=== PATIENT | male | born 1940 | race Caucasian/White ===

== ENCOUNTER 2022-02-04 07:09 | Outpatient (CLI) | payer MEDICARE ==
--- NOTE | 2022-02-04 08:28 | Ultrasound Report ---
PROCEDURE: Head or Neck Soft Tissue INDICATIONS: LUMP AT BASE OF NECK TECHNIQUE: Real time scanning was performed of the neck region of interest, with image documentation . COMPARISON: None. FINDINGS: Focused ultrasound examination of left neck soft tissue at patient's reported palpable lump shows oval heterogeneously hypoechoic structure measures 1.8 x 1.5 x 1.7 cm in size with internal va scularity. No other soft tissue mass or enlarged lymph nodes are seen. IMPRESSION: Finding may represent enlarged lymph node in left neck soft tissues just posterior to mid common amado tid artery. Clinical correlation and follow-up is recommended. Reviewed by: Cezar Sinha MD on 02/04/2022 8:26 AM PDT Approved by: Cezar Sinha MD on 02/04/2022 8:26 AM PDT Station ID: [id number]
== END 2022-02-04 07:10 | disposition home or self-care (01) ==
LOC: DI 07:09
PROVIDERS: ATTEND Student in an Organized Health Care Education/Training Program
DX: R22.1 Localized swelling, mass and lump, neck (principal)

== ENCOUNTER 2022-09-17 10:37 | Outpatient (CLI) | payer MEDICARE ==
--- NOTE | 2022-09-17 13:22 | XRAY Report ---
PROCEDURE: Shoulder 3 View RT INDICATIONS: SHOULDER PAIN TECHNIQUE: 3 views of the shoulder were acquired. COMPARISON: None. FINDINGS: Bones: No fractures or dislocations. Moderate degenerative glenohumeral joint space loss and mild s clerosis of the acetabular rim. Mild space loss and spurring at the acromioclavicular joint. No suspi cious bony lesions. Visualized ribs appear intact. Soft tissues: No suspicious soft tissue calcifications. The visible right lung is normal. IMPRESSION: 1. Moderate degenerative glenohumeral joint changes. 2. Mild AC joint degenerative change. Reviewed by: Allegra Carney MD on 09/17/2022 12:20 PM [facility] Approved by: Allegra Carney MD on 09/17/2022 12:20 PM [facility] Station ID: [id number]
== END 2022-09-17 10:38 | disposition home or self-care (01) ==
LOC: DI 10:37
PROVIDERS: ATTEND Internal Medicine
DX: M19.011 Primary osteoarthritis, right shoulder (principal)

== ENCOUNTER 2022-10-16 06:20 | Outpatient (CLI) | payer MEDICARE ==
[2022-10-16 06:47] LABS: CREATININE 0.9 mg/dL (0.6-1.2)
[2022-10-16] MEDS ORDERED: iohexoL-300 100 ML VIAL ONE (06:56)
[2022-10-16] MEDS: iohexoL-300 100 ML VIAL IVP ONE (07:27)
--- NOTE | 2022-10-16 10:56 | CT Report ---
PROCEDURE: SOFT TISSUE NECK W INDICATIONS: NECK MASS CONTRAST: 100ml Omnipaque 300 TECHNIQUE: After the administration of intravenous contrast, 3.0 mm axial sections acquired from the sella to th e aortic arch. Additional oblique axial 3.0 mm sections acquired through the pharynx. 3 mm thick co layo reformats were generated. For radiation dose reduction, the following was used: automated exp osure control, adjustment of mA and/or kV according to patient size. COMPARISON: Correlation is made with prior ultrasound, 02/04/2022. FINDINGS: Image quality: There is artifact associated with the metallic hardware. Lymph nodes: No enlarged lymph nodes seen throughout the neck. Vessels: Visualized vasculature appears patent. Neck spaces: At the site of the previously seen ultrasound abnormality, there is a well-defined roun ded low-density lesion that measures 1.8 x 1.8 cm in greatest axial dimension, with an intraluminal d ensity of 30 Hounsfield units. No significant rim enhancement can be seen. The oropharynx, nasopharynx, and pharynx demonstrate no mucosal lesions. The vocal cords, false voca l cords, pyriform sinuses, epiglottis, vallecula, and tongue base all appear normal. Glands: The parotid and submandibular glands appear normal. The thyroid demonstrates a 2 cm low-den sity lesion on the right posteriorly. Miscellaneous: Visualized brain and orbits appear normal. Lung apices appear clear. Superficial so ft tissues appear normal. Bones: No suspicious bony lesions. Moderate mucosal thickening is seen involving the maxillary sinus es. The medial porras of the maxillary sinuses are demineralized. Mild to moderate mucosal thickening is seen involving the frontal sinuses, left worse than right. Milder mucosal thickening is seen elsew here within the paranasal sinuses. No significant abnormal fluid can be seen within the mastoid air c ells. Mild to moderate cervical spine degenerative changes are seen. IMPRESSION: There is an 18 mm rounded lesion seen within the left base of the neck, corresponding to the previous ly seen ultrasound abnormality. This is stable from the prior and is felt most likely to be related t o a benign complicated cyst. 2 cm right thyroid lesion noted. If clinically appropriate, please consider a follow-up dedicated thy roid ultrasound for further evaluation. Paranasal sinus disease is noted, which is most prominent within the maxillary sinuses. Reviewed by: Sheldon Rivera MD on 10/16/2022 9:54 AM [facility] Approved by: Sheldon Rivera MD on 10/16/2022 9:54 AM [facility] Station ID: [id number]
== END 2022-10-16 06:21 | disposition home or self-care (01) ==
LOC: LAB 06:20
PROVIDERS: ATTEND Otolaryngology
DX: J35.8 Other chronic diseases of tonsils and adenoids (principal); R22.1 Localized swelling, mass and lump, neck; E07.89 Other specified disorders of thyroid; J34.89 Other specified disorders of nose and nasal sinuses
CPT/HCPCS: 36415; 70491; 82565; Q9967

== ENCOUNTER 2022-11-01 08:48 | Outpatient (CLI) | payer MEDICARE ==
--- NOTE | 2022-11-01 14:03 | Ultrasound Report ---
PROCEDURE: Head or Neck Soft Tissue INDICATIONS: THYROID NODULE TECHNIQUE: Real time scanning was performed of the neck region of interest, with image documentation . COMPARISON: Neck CT 10/16/2022 FINDINGS: There are two thyroid nodules in the right thyroid lobe. One nodule in the superior and lateral right thyroid is solid and hypoechoic with smooth margins and increased vascularity but no suspicious internal echogenic foci to suggest microcalcification. This n odule measures 0.9 x 0.7 x 0.4 cm. Another nodule in the inferior right thyroid is decreased in size from comparison CT exam, currently measuring 1.8 x 1.7 x 1.6 cm (previously up to 2 cm). This is predominantly solid and hypoechoic with smooth margins and peripheral vascularity. IMPRESSION: Two thyroid lobe nodules which warrant follow-up in 12 months but do not meet recommendation criteria for fine needle aspiration. Reviewed by: Cedric Palacios MD on 11/01/2022 1:02 PM [place] Approved by: Cedric Palacios MD on 11/01/2022 1:02 PM [facility] Station ID: [id number]
== END 2022-11-01 08:49 | disposition home or self-care (01) ==
LOC: DI 08:48
PROVIDERS: ATTEND Otolaryngology
DX: E04.2 Nontoxic multinodular goiter (principal)

== ENCOUNTER 2023-07-07 11:31 | Observation (INO) | payer MEDICARE ==
[2023-07-07 12:24] LABS: BASOPHILS # (AUTO) 0.1 10^3/uL (0.0-0.1); EOSINOPHILS # (AUTO) 0.1 10^3/uL (0.0-0.7); HCT - HEMATOCRIT 31.5 % (42.0-52.0); HGB - HEMOGLOBIN 10.5 g/dL (14.0-18.0); LYMPHOCYTES # (AUTO) 2.2 10^3/uL (1.5-3.5); LYMPHOCYTES % (AUTO) 24.2 %; MEAN CORPUSCULAR HEMOGLOBIN 30.4 pg (27.0-31.0); MEAN CORPUSCULAR HGB CONC 33.3 g/dL (32.0-36.0); MEAN CORPUSCULAR VOLUME 91.3 fL (80.0-94.0); MEAN PLATELET VOLUME 9.1 fL (7.4-11.4); MONOCYTES # (AUTO) 0.7 10^3/uL (0.0-1.0); MONOCYTES % (AUTO) 7.1 %; NEUTROPHILS # (AUTO) 6.1 10^3/uL (1.5-6.6); NEUTROPHILS % (AUTO) 66.2 %; PLT - PLATELET COUNT 227 10^3/uL (130-450); RED BLOOD COUNT 3.45 10^6/uL (4.70-6.10); RED CELL DISTRIBUTION WIDTH 12.8 % (12.0-15.0); WHITE BLOOD COUNT 9.1 x10^3/uL (4.8-10.8)
[2023-07-07 12:31] LABS: ALBUMIN 3.7 g/dL (3.2-5.5); ALBUMIN/GLOBULIN RATIO 1.3 (1.0-2.2); BILIRUBIN,TOTAL 0.5 mg/dL (0.2-1.0); POTASSIUM 4.1 mmol/L (3.5-4.5); TOTAL PROTEIN 6.5 g/dL (6.4-8.9)
[2023-07-07] MEDS ORDERED: SODIUM CHLORIDE 0.9% 1,000 ML IV STA ×2 (13:45)
[2023-07-07] MEDS ORDERED: PANTOPRAZOLE 40 MG VIAL IVP STA (13:47)
--- NOTE | 2023-07-07 13:59 | ED Physician Documentation ---
History of Present Illness - Stated complaint Stated Complaint: VOMIT, DIZZINESS - Chief complaint Chief Complaint: Abd Pain - History obtained from History obtained from: Patient - History of Present Illness Timing: Today, How many days ago (3) Pain level max: 0 Pain level now: 0 - Additonal information Additional information: Patient is an 83-year-old male who presents to the emergency department with dark tarry stools for the past 2 to 3 days. He states today he had vomiting and the emesis appeared to be bloody. He is not on any blood thinners at home. Does not have any history of heavy alcohol use. No history of varices. Has never had GI bleeding before. He has had a colonoscopy in the past, states his last colonoscopy was about 4 to 5 years ago and states it was reportedly normal other than some polyps and diverticulosis. He states that he had a capsule endoscopy in the past to evaluate for possible Crohn's disease but it was "indeterminate". He does not use any NSAIDs. No fevers. No chills. Patient's states that he is pale appearing. Patient does not have any history of jyoti er disease. Review of Systems Constitutional: denies: Fever, Chills Nose: denies: Rhinorrhea / runny nose, Congestion Cardiac: denies: Chest pain / pressure, Palpitations Respiratory: denies: Cough, Wheezing GI: reports: Nausea, Vomiting, Hematemesis, Bloody / black stool. denies: Abdominal Pain : denies: Dysuria Skin: denies: Rash Musculoskeletal: denies: Neck pain, Back pain Neurologic: denies: Headache PD PAST MEDICAL HISTORY - Past Medical History Past Medical History: Yes Cardiovascular: Hypertension - Past Surgical History General: Colonoscopy - Present Medications Home Medications: Ambulatory Orders Medication Instructions Recorded Confirmed Aspirin EC [Ecotrin] 1 tab PO DAILY 07/07/23 07/07/23 Calcium Magnesium Zinc 1 tab PO Q48H 07/07/23 07/07/23 Cholecalciferol [Vitamin D3] 2 tab PO DAILY 07/07/23 07/07/23 Ibuprofen 1 tab PO DAILY PRN 07/07/23 07/07/23 Lactobacillus Combination No.4 1 cap PO DAILY 07/07/23 07/07/23 [Probiotic] Lisinopril [Zestril] 1 tab PO DAILY 07/07/23 07/07/23 Magnesium Oxide 1 cap PO DAILY 07/07/23 07/07/23 Red Yeast Rice 1 cap PO DAILY 07/07/23 07/07/23 Tocopheryl [Vitamin E] 1 cap PO DAILY 07/07/23 07/07/23 Turmeric/Turmeric Root Extract 1 cap PO Q48H 07/07/23 07/07/23 [Turmeric 500 mg Capsule] hydroCHLOROthiazide [Hydrodiuril] 1 cap PO DAILY 07/07/23 07/07/23 - Allergies Allergies/Adverse Reactions: Allergies Allergy/AdvReac Type Severity Reaction Status Date / Time Iodinated Contrast Media Allergy Rash Verified 07/07/23 16:17 Penicillins Allergy Rash Verified 07/07/23 12:04 - Living Situation Living Situation: reports: With family Living Arrangement: reports: At home - Social History Does the pt smoke?: No Does the pt drink ETOH?: Yes ETOH Use: Wine Does the pt have substance abuse?: No - Family History Family history: reports: Non contributory PD ED PE NORMAL - Vitals Vital signs reviewed: Yes - General General: Alert and oriented X 3, No acute distress - HEENT HEENT: PERRL, Moist mucous membranes - Neck Neck: Supple, no meningeal sign - Cardiac Cardiac: RRR, Strong equal pulses - Respiratory Respiratory: No respiratory distress, Clear bilaterally - Abdomen Abdomen: Soft, Non tender, Non distended - Rectal Rectal: Pt declined - Derm Derm: Warm and dry - Neuro Neuro: Alert and oriented X 3 - Psych Psych: Normal mood, Normal affect Results - Vitals Vitals: Vital Signs - 24 hr 07/07/23 07/07/23 07/07/23 12:04 14:03 15:03 Temperature 36.5 C Heart Rate 100 96 102 H Respiratory 16 12 14 Rate Blood Pressure 130/90 H 126/63 121/57 L O2 Saturation 97 96 93 Oxygen O2 Source Room air - Labs Labs: Microbiology 07/07/23 13:34 Occult Blood - Final Stool Laboratory Tests 07/07/23 07/07/23 07/07/23 12:14 12:14 13:50 WBC 9.1 RBC 3.45 L Hgb 10.5 L Hct 31.5 L MCV 91.3 MCH 30.4 MCHC 33.3 RDW 12.8 Plt Count 227 MPV 9.1 Neut # (Auto) 6.1 Lymph # (Auto) 2.2 [place] # (Auto) 0.7 Eos # (Auto) 0.1 Baso # (Auto) 0.1 Absolute Nucleated RBC 0.00 Nucleated RBC % 0.0 PT INR Sodium 138 Potassium 4.1 Chloride 102 Carbon Dioxide 27 Anion Gap 9.0 BUN 49 H Creatinine 1.0 Estimated GFR (MDRD) 72 L Glucose 255 H Calcium 9.0 Total Bilirubin 0.5 AST 24 ALT 30 Alkaline Phosphatase 28 L Total Protein 6.5 Albumin 3.7 Globulin 2.8 Albumin/Globulin Ratio 1.3 Lipase 20 Blood Type Blood Type Recheck A POSITIVE Antibody Screen 07/07/23 07/07/23 07/07/23 13:51 13:51 16:00 WBC 14.3 H RBC 3.24 L Hgb 9.9 L Hct 29.5 L MCV 91.0 MCH 30.6 MCHC 33.6 RDW 12.7 Plt Count 196 MPV 9.3 Neut # (Auto) 12.6 H Lymph # (Auto) 0.7 L [place] # (Auto) 0.8 Eos # (Auto) 0.0 Baso # (Auto) 0.0 Absolute Nucleated RBC 0.00 Nucleated RBC % 0.0 PT 12.6 INR 1.1 Sodium Potassium Chloride Carbon Dioxide Anion Gap BUN Creatinine Estimated GFR (MDRD) Glucose Calcium Total Bilirubin AST ALT Alkaline Phosphatase Total Protein Albumin Globulin Albumin/Globulin Ratio Lipase Blood Type A POSITIVE Blood Type Recheck Antibody Screen NEGATIVE PD Medical Decision Making - ED course Complexity details: reviewed results, re-evaluated patient, considered differential, d/w patient, d/w family, d/w nursing consultant ED course: Patient with obvious dark black tarry stool. Abdomen is soft, nontender nondistended. Appears to be consistent with an upper GI bleed. Given IV Protonix. Discussed the case with Dr. Fraga, general surgery on-call who will take the patient to the OR for endoscopy. Also discussed the case with Dr. Goetz, hospitalist who accepts the patient after endoscopy. Patient feels better after IV fluids. Will need continued monitoring. No history of esophageal varices. No history of heavy alcohol use. This document was made in part using voice recognition software. While efforts are made to proofread this document, sound alike and grammatical errors may occur. Departure - Departure Disposition: ED Place in Observation Clinical Impression: GI bleed Qualifiers: GI bleed type/associated pathology: melena Qualified Code(s): K92.1 - Melena Anemia Qualifiers: Anemia type: unspecified type Qualified Code(s): D64.9 - Anemia, unspecified Hematemesis/vomiting blood Qualifiers: Nausea presence: with nausea Qualified Code(s): K92.0 - Hematemesis Condition: Stable Discharge Date/Time: 07/07/23 16:25
[2023-07-07] MEDS ORDERED: METOCLOPRAMIDE 10 MG/2 ML VIAL IVP STA (14:01)
[2023-07-07 14:05] LABS: INR 1.1 (0.8-1.2); PT - PROTHROMBIN TIME 12.6 secs (9.9-12.6)
[2023-07-07 16:10] LABS: BASOPHILS % (AUTO) 0.3 %; EOSINOPHILS % (AUTO) 0.1 %; HCT - HEMATOCRIT 29.5 % (42.0-52.0); HGB - HEMOGLOBIN 9.9 g/dL (14.0-18.0); LYMPHOCYTES # (AUTO) 0.7 10^3/uL (1.5-3.5); LYMPHOCYTES % (AUTO) 4.9 %; MEAN CORPUSCULAR HEMOGLOBIN 30.6 pg (27.0-31.0); MEAN CORPUSCULAR HGB CONC 33.6 g/dL (32.0-36.0); MEAN PLATELET VOLUME 9.3 fL (7.4-11.4); MONOCYTES # (AUTO) 0.8 10^3/uL (0.0-1.0); MONOCYTES % (AUTO) 5.9 %; NEUTROPHILS # (AUTO) 12.6 10^3/uL (1.5-6.6); NEUTROPHILS % (AUTO) 88.1 %; PLT - PLATELET COUNT 196 10^3/uL (130-450); RED BLOOD COUNT 3.24 10^6/uL (4.70-6.10); RED CELL DISTRIBUTION WIDTH 12.7 % (12.0-15.0); WHITE BLOOD COUNT 14.3 x10^3/uL (4.8-10.8)
--- NOTE | 2023-07-07 16:15 | ANESTHESIA ---
Pre-Anesthesia VS, & Labs - Diagnosis Anemia, GI BLeed - Procedure EGD Vital Signs: Temp Pulse Resp BP Pulse Ox O2 Flow Rate 36.5 C 102 H 14 121/57 L 93 07/07/23 12:04 07/07/23 15:03 07/07/23 15:03 07/07/23 15:03 07/07/23 15:03 Height: 5 ft 7 in Weight (kg): 77.111 kg Body Mass Index: 26.6 BMI Classification: Overweight - NPO Last Food Intake: 0700 oatmeal - Lab Results Current Lab Results: Laboratory Tests 07/07/23 13:51: PT 12.6, INR 1.1 07/07/23 13:51: Blood Type A POSITIVE, Antibody Screen NEGATIVE 07/07/23 13:50: Blood Type Recheck A POSITIVE 07/07/23 12:14: Sodium 138, Potassium 4.1, Chloride 102, Carbon Dioxide 27, Anion Gap 9.0, BUN 49 H, Creatinine 1.0, Estimated GFR (MDRD) 72 L, Glucose 255 H, Calcium 9.0, Total Bilirubin 0.5, AST 24, ALT 30, Alkaline Phosphatase 28 L, Total Protein 6.5, Albumin 3.7, Globulin 2.8, Albumin/Globulin Ratio 1.3, Lipase 20 07/07/23 12:14: WBC 9.1, RBC 3.45 L, Hgb 10.5 L, Hct 31.5 L, MCV 91.3, MCH 30.4, MCHC 33.3, RDW 12.8, Plt Count 227, MPV 9.1, Neut # (Auto) 6.1, Lymph # (Auto) 2.2, [place] # (Auto) 0.7, Eos # (Auto) 0.1, Baso # (Auto) 0.1, Absolute Nucleated RBC 0.00, Nucleated RBC % 0.0 Lab results reviewed: Yes Fish Bones: 07/07/23 12:14 07/07/23 12:14 Home Medications and Allergies Active Medications Sodium Chloride (Normal Saline 0.9%) 1,000 mls @ 150 mls/hr IV .[id number] STA Stop: 07/07/23 20:24 Last Admin: 07/07/23 13:55 Dose: 150 mls/hr Lisinopril/HCTZ ASA Allergies/Adverse Reactions: Allergies Allergy/AdvReac Type Severity Reaction Status Date / Time Iodinated Contrast Media Allergy Rash Verified 07/07/23 16:17 Penicillins Allergy Rash Verified 07/07/23 12:04 Anes History & Medical History - Anesthetic History Family history of Anesthesia Complications: Denies Family history of Malignant Hyperthermia: Denies - Medical History Cardiovascular: reports: Hypertension Pulmonary: reports: Other (snores) Gastrointestinal: reports: GERD (occasional) Urinary: reports: None Neuro: reports: None Musculoskeletal: reports: None Endocrine/Autoimmune: reports: None Blood Disorders: reports: None Skin: reports: None Smoking Status: Never smoker Psychosocial: reports: Alcohol (daily glass of wine) History of Cancer?: No - Surgical History General: reports: Colonoscopy Exam General: Alert, Oriented x3, Cooperative, No acute distress Dental: WNL Mouth Openin Fingerbreadth Neck Mobility: Normal Mallampati classification: I Thyromental Distance: 4-6 cm Mental/Cognitive Status: Alert/Oriented X3, Normal for patient Plan Anesthesia Type: General Consent for Procedure(s) Verified and Reviewed: Yes Code Status: Attempt Resuscitation ASA classification: 2-Mild systemic disease Is this case an emergency?: Yes
[2023-07-07] MEDS ORDERED: PROPOFOL 500 MG/50 ML 500 MG/50 ML VIAL ONE (16:16)
--- NOTE | 2023-07-07 16:16 | CONSULTATION NOTE ---
Referring Provider Name of Referring Provider:: medicine Consult Date: 07/07/23 Chief Complaint - Chief Complaint Chief Complaint: I feel terrible History of Present Illness - Admitted From Admitted From:: ED - History Obtained From Records Reviewed: yes History obtained from: patient, ED provider, - History of Present Illness HPI Comment/Other: Please see paper H&P on chart. melena x1 day, emesis x6 today History - Past Medical History Cardiovascular: reports: Hypertension - Past Surgical History General: reports: Colonoscopy - Family & Social History Living arrangement: At home Living Situation: With family - POLST Patient has POLST: No Meds/Allgy - Allergies Allergies/Adverse Reactions: Allergies Allergy/AdvReac Type Severity Reaction Status Date / Time Penicillins Allergy Rash Verified 07/07/23 12:04 Exam - Vital Signs Vital Signs: Vital Signs x48h Temp Pulse Resp BP Pulse Ox 07/07/23 15:03 102 H 14 121/57 L 93 07/07/23 14:03 96 12 126/63 96 07/07/23 12:04 36.5 C 100 16 130/90 H 97 Conclusion and Plan - Lab Results Microbiology Results 07/07/23 13:34 Stool Occult Blood - Final Laboratory Results 07/07/23 13:51: PT 12.6, INR 1.1 07/07/23 13:51: Blood Type A POSITIVE, Antibody Screen NEGATIVE 07/07/23 13:50: Blood Type Recheck A POSITIVE 07/07/23 12:14: Sodium 138, Potassium 4.1, Chloride 102, Carbon Dioxide 27, Anion Gap 9.0, BUN 49 H, Creatinine 1.0, Estimated GFR (MDRD) 72 L, Glucose 255 H, Calcium 9.0, Total Bilirubin 0.5, AST 24, ALT 30, Alkaline Phosphatase 28 L, Total Protein 6.5, Albumin 3.7, Globulin 2.8, Albumin/Globulin Ratio 1.3, Lipase 20 07/07/23 12:14: WBC 9.1, RBC 3.45 L, Hgb 10.5 L, Hct 31.5 L, MCV 91.3, MCH 30.4, MCHC 33.3, RDW 12.8, Plt Count 227, MPV 9.1, Neut # (Auto) 6.1, Lymph # (Auto) 2.2, [place] # (Auto) 0.7, Eos # (Auto) 0.1, Baso # (Auto) 0.1, Absolute Nucleated RBC 0.00, Nucleated RBC % 0.0 - Consultation Note Consultation Note: 83 y/o M with: 1. Acute gi bleed - Hgb 10, HD stable - suspect upper source given elevated BUN, hematemesis - plan for emergent EGD today. I discussed r/b/a of procedure with the patient including bleeding and perforation. Consent signed by patient in ED. - PPI BID IV until bleeding stops, then transition to PO - q6h hgb until stable - NPO until bleeding stops 2. HTN - recommend holding home meds while actively bleeding Recommend inpatient admission to medicine. Thank you for consulting me in the care of this patient! I will continue to follow closely.
[2023-07-07] MEDS ORDERED: SODIUM CHLORIDE FLUSH 0.9% 10 ML SYRINGE IVP PRN (16:39)
[2023-07-07] MEDS ORDERED: ACETAMINOPHEN 325 MG TABLET PO PRN (16:39)
--- NOTE | 2023-07-07 16:46 | HISTORY & PHYSICAL EXAMINATION ---
Chief Complaint - Chief Complaint Chief Complaint: Hematemasis History of Present Illness - Admitted From Admitted From:: OR after EGD - History Obtained From History obtained from: ED provider and surgeon - History of Present Illness HPI Comment/Other: This is an 83-year-old male with a history of HTN on Lisinopril/HCTZ and he takes daily ASA. Today he presented to the ER with complaints of dark tarry stools for the past 2 to 3 days, and today had vomiting bright red blood and coffee-grounds. While in the ER he also had a current-jelly black stool. He was worked up for an GI bleed and hemoglobin came back at 10.5. His HR is 102, but BP stable. General surgery was called for consultation and will be taking him directly from the ED to OR for an EGD. I spoke to the general surgeon Dr. Gerber regarding the plan. Dr. Gerber first said that if the EGD is negative that he will need a CTA abdomen/pelvis, however Dr Gerber later told me that the CTA would only need to be done emergently if there is no source of bleeding found by EGD, or if he rebleeds. History - Past Medical History Cardiovascular: reports: Hypertension Respiratory: reports: Other (snores) Neuro: reports: None Endocrine/Autoimmune: reports: None GI: reports: GERD (occasional) : reports: None Musculoskeletal: reports: None Derm: reports: None - Past Surgical History General: reports: Colonoscopy - Family & Social History Living arrangement: At home Living Situation: With spouse/s.o. Social History Notes: He does not smoke. He drinks 1 glass of alcohol every day. - POLST Patient has POLST: No Meds/Allgy - Home Medications Home Medications: Ambulatory Orders Medication Instructions Recorded Confirmed Aspirin EC [Ecotrin] 1 tab PO DAILY 07/07/23 07/07/23 Calcium Magnesium Zinc 1 tab PO Q48H 07/07/23 07/07/23 Cholecalciferol [Vitamin D3] 2 tab PO DAILY 07/07/23 07/07/23 Ibuprofen 1 tab PO DAILY PRN 07/07/23 07/07/23 Lactobacillus Combination No.4 1 cap PO DAILY 07/07/23 07/07/23 [Probiotic] Lisinopril [Zestril] 1 tab PO DAILY 07/07/23 07/07/23 Magnesium Oxide 1 cap PO DAILY 07/07/23 07/07/23 Red Yeast Rice 1 cap PO DAILY 07/07/23 07/07/23 Tocopheryl [Vitamin E] 1 cap PO DAILY 07/07/23 07/07/23 Turmeric/Turmeric Root Extract 1 cap PO Q48H 07/07/23 07/07/23 [Turmeric 500 mg Capsule] hydroCHLOROthiazide [Hydrodiuril] 1 cap PO DAILY 07/07/23 07/07/23 - Allergies Allergies/Adverse Reactions: Allergies Allergy/AdvReac Type Severity Reaction Status Date / Time Iodinated Contrast Media Allergy Rash Verified 07/07/23 16:17 Penicillins Allergy Rash Verified 07/07/23 12:04 Review of Systems - Gastrointestinal Gastrointestinal: reports: Black stools, Bloody stools, Nausea, Vomiting, Coffee grounds emesis - All Other Systems All Other Systems: reports: Reviewed and negative Exam - Vital Signs Vital Signs: Vital Signs x48h Temp Pulse Resp BP Pulse Ox 07/07/23 15:03 102 H 14 121/57 L 93 07/07/23 14:03 96 12 126/63 96 07/07/23 12:04 36.5 C 100 16 130/90 H 97 - Physical Exam General Appearance: positive: No acute distress, Alert Eyes Bilateral: positive: No lid inflammation ENT: positive: ENT inspection nml Neck: positive: Nml inspection Respiratory: positive: No respiratory distress, Breath sounds nml Cardiovascular: positive: Regular rate & rhythm, No murmur Abdomen: positive: Non-tender, No distention Skin: positive: Warm, Dry Extremities: positive: Non-tender, No pedal edema Neurologic/Psychiatric: positive: Oriented x3 Conclusion/Plan - Problem List (1) Hematemesis/vomiting blood Conclusion/Plan: Patient had witnessed coffee-ground emesis as well as current-jelly bowel movement in the ER. He has an elevated BUN. These findings are consistent with upper GI bleed. Patient was started on IV Protonix empirically Patient will be taken to the OR for an EGD emergently. Plan: Place in observation for close monitoring of recurrence of bleeding, watching vital signs Continue with IV twice daily Protonix Avoid any NSAIDs or aspirin Diet to be advanced as recommended by general surgeon EGD to be done emergently today>> Dr Gerber spoke to me about his EGD results. He has a small superficial healed ulcer in the duodenal bulb. He also has a Patsy-Whelan tear at the GE junction with evidence of recent bleeding. There is no blood in the stomach. She recommended the PPI twice daily and following Hgb. She will also talk to him about stopping daily alcohol intake. Will order Sucralfate liquid as well. Qualifiers: Nausea presence: with nausea Qualified Code(s): K92.0 - Hematemesis (2) Anemia Conclusion/Plan: The patient has a hemoglobin of 9.9. Because is an upper GI bleed, most likely Plan: Follow hemoglobin every 6 and would plan to transfuse if Hgb <7 Qualifiers: Anemia type: unspecified type Qualified Code(s): D64.9 - Anemia, unspecified (3) Hx of essential hypertension Conclusion/Plan: The patient is on BP meds. Currently his blood pressure is stable however in the face of an active upper GI bleed, blood pressure could drop rapidly due to blood loss Plan: Hold BP meds for now - Lab Results Lab results reviewed: Yes Fish Bones: 07/08/23 07:59 07/07/23 12:14 - Diagnostic Imaging Results Diagnostic Imaging Results: positive: Final report reviewed
--- NOTE | 2023-07-07 17:51 | ANESTHESIA POST OP EVALUATION ---
Anesthesia Post Eval - Post Anesthesia Eval Vitals: Last Vital Signs Temp 36.8 C 07/07/23 17:48 Pulse 92 07/07/23 17:48 Resp 19 07/07/23 17:48 BP 112/54 L 07/07/23 17:48 Pulse Ox 93 07/07/23 17:48 O2 Flow Rate CV Function Including HR & BP: Stable Pain Control: Satisfactory Nausea & Vomiting: Negative Mental Status: Baseline Respiratory Status: Airway Patent Hydration Status: Satisfactory Anesthesia Complications: None
--- NOTE | 2023-07-07 18:10 | PHARMACY PROGRESS NOTE ---
- Best Possible Medication History Admit Date and Time: 07/07/23 3199 Processed by: Pharmacy Medication History completed: Yes Patient Interview: Completed Secondary Source(s): Spouse/Significant other, Pharmacy records As the person ultimately responsible for medication therapy, providers are able to order a medication from an existing home medication list in [facility] via the "Reconcile Routine" prior to Confirmation of that medication by patient support associate. Such practice is discouraged except when the physician, in their clinical judgment, deems that a medical need exists for a medication without regard to previous use.
[2023-07-07] MEDS ORDERED: SUCRALFATE 1 GM/10 ML UDC PO SCH ×3 (18:32→22:00)
[2023-07-07] MEDS ORDERED: PANTOPRAZOLE 40 MG VIAL IVP ONE (21:00)
[2023-07-07] MEDS ORDERED: PANTOPRAZOLE 40 MG TABLET PO SCH (21:00)
[2023-07-07] MEDS: SODIUM CHLORIDE FLUSH 0.9% 10 ML SYRINGE IVP SCH ×2 (21:25→23:47)
[2023-07-07] MEDS: SODIUM CHLORIDE 0.9% 1,000 ML IV SCH (21:25)
[2023-07-07] MEDS ORDERED: SUCRALFATE 1 GM/10 ML UDC PO ONE (23:59)
[2023-07-08] MEDS: SUCRALFATE 1 GM/10 ML UDC PO SCH ×2 (06:31→11:32)
--- NOTE | 2023-07-08 07:29 | PROVIDER PROGRESS NOTE ---
Subjective - General Admit Date: 07/07/23 Procedure Date: 07/07/23 Post Op Days: 1 Procedure Performed: EGD - Other Other Information/Narrative: Patient denies pain, tolerating liquids. No acute events overnight. Patient would like to go home. States understanding regarding plan for diet, lifestyle after discharge. Objective - Patient Data Reviewed Vital Signs: Yes Vital Signs: Vital Signs x48h Temp Pulse Resp BP Pulse Ox 07/08/23 04:30 36.9 C 102 H 20 130/60 95 07/07/23 23:59 37.1 C 98 18 132/59 H 93 Weight: Weight 07/06/23 07/07/23 07/08/23 23:59 23:59 23:59 Weight (kg) 80 kg Intake & Output: Intake and Output Totals x24h 07/06/23 07/07/23 07/08/23 23:59 23:59 23:59 Intake Total 959.988 Output Total 825 700 Balance 134.988 -700 - Lab Results Lab Results: 07/08/23 02:09 07/07/23 12:14 Other Lab Results: Lab Results x24hrs 07/08/23 07/07/23 07/07/23 Range/Units 02:09 19:55 16:00 WBC 14.3 H (4.8-10.8) x10^3/uL RBC 3.24 L (4.70-6.10) 10^6/uL Hgb 8.1 L 9.5 L 9.9 L (14.0-18.0) g/dL Hct 29.5 L (42.0-52.0) % MCV 91.0 (80.0-94.0) fL MCH 30.6 (27.0-31.0) pg MCHC 33.6 (32.0-36.0) g/dL RDW 12.7 (12.0-15.0) % Plt Count 196 (130-450) 10^3/uL MPV 9.3 (7.4-11.4) fL Neut # (Auto) 12.6 H (1.5-6.6) 10^3/uL Lymph # (Auto) 0.7 L (1.5-3.5) 10^3/uL [place] # (Auto) 0.8 (0.0-1.0) 10^3/uL Eos # (Auto) 0.0 (0.0-0.7) 10^3/uL Baso # (Auto) 0.0 (0.0-0.1) 10^3/uL Absolute Nucleated RBC 0.00 x10^3/uL Nucleated RBC % 0.0 /100WBC PT (9.9-12.6) secs INR (0.8-1.2) Sodium (135-145) mmol/L Potassium (3.5-4.5) mmol/L Chloride (101-111) mmol/L Carbon Dioxide (21-32) mmol/L Anion Gap (6-13) BUN (6-20) mg/dL Creatinine (0.6-1.3) mg/dL Estimated GFR (MDRD) (>89) Glucose (74-104) mg/dL Calcium (8.5-10.3) mg/dL Total Bilirubin (0.2-1.0) mg/dL AST (10-42) IU/L ALT (10-60) IU/L Alkaline Phosphatase (42-121) IU/L Total Protein (6.4-8.9) g/dL Albumin (3.2-5.5) g/dL Globulin (2.1-4.2) g/dL Albumin/Globulin Ratio (1.0-2.2) Lipase (11-82) U/L Blood Type Blood Type Recheck Antibody Screen 07/07/23 07/07/23 07/07/23 Range/Units 13:51 13:51 13:50 WBC (4.8-10.8) x10^3/uL RBC (4.70-6.10) 10^6/uL Hgb (14.0-18.0) g/dL Hct (42.0-52.0) % MCV (80.0-94.0) fL MCH (27.0-31.0) pg MCHC (32.0-36.0) g/dL RDW (12.0-15.0) % Plt Count (130-450) 10^3/uL MPV (7.4-11.4) fL Neut # (Auto) (1.5-6.6) 10^3/uL Lymph # (Auto) (1.5-3.5) 10^3/uL [place] # (Auto) (0.0-1.0) 10^3/uL Eos # (Auto) (0.0-0.7) 10^3/uL Baso # (Auto) (0.0-0.1) 10^3/uL Absolute Nucleated RBC x10^3/uL Nucleated RBC % /100WBC PT 12.6 (9.9-12.6) secs INR 1.1 (0.8-1.2) Sodium (135-145) mmol/L Potassium (3.5-4.5) mmol/L Chloride (101-111) mmol/L Carbon Dioxide (21-32) mmol/L Anion Gap (6-13) BUN (6-20) mg/dL Creatinine (0.6-1.3) mg/dL Estimated GFR (MDRD) (>89) Glucose (74-104) mg/dL Calcium (8.5-10.3) mg/dL Total Bilirubin (0.2-1.0) mg/dL AST (10-42) IU/L ALT (10-60) IU/L Alkaline Phosphatase (42-121) IU/L Total Protein (6.4-8.9) g/dL Albumin (3.2-5.5) g/dL Globulin (2.1-4.2) g/dL Albumin/Globulin Ratio (1.0-2.2) Lipase (11-82) U/L Blood Type A POSITIVE Blood Type Recheck A POSITIVE Antibody Screen NEGATIVE 07/07/23 07/07/23 Range/Units 12:14 12:14 WBC 9.1 (4.8-10.8) x10^3/uL RBC 3.45 L (4.70-6.10) 10^6/uL Hgb 10.5 L (14.0-18.0) g/dL Hct 31.5 L (42.0-52.0) % MCV 91.3 (80.0-94.0) fL MCH 30.4 (27.0-31.0) pg MCHC 33.3 (32.0-36.0) g/dL RDW 12.8 (12.0-15.0) % Plt Count 227 (130-450) 10^3/uL MPV 9.1 (7.4-11.4) fL Neut # (Auto) 6.1 (1.5-6.6) 10^3/uL Lymph # (Auto) 2.2 (1.5-3.5) 10^3/uL [place] # (Auto) 0.7 (0.0-1.0) 10^3/uL Eos # (Auto) 0.1 (0.0-0.7) 10^3/uL Baso # (Auto) 0.1 (0.0-0.1) 10^3/uL Absolute Nucleated RBC 0.00 x10^3/uL Nucleated RBC % 0.0 /100WBC PT (9.9-12.6) secs INR (0.8-1.2) Sodium 138 (135-145) mmol/L Potassium 4.1 (3.5-4.5) mmol/L Chloride 102 (101-111) mmol/L Carbon Dioxide 27 (21-32) mmol/L Anion Gap 9.0 (6-13) BUN 49 H (6-20) mg/dL Creatinine 1.0 (0.6-1.3) mg/dL Estimated GFR (MDRD) 72 L (>89) Glucose 255 H (74-104) mg/dL Calcium 9.0 (8.5-10.3) mg/dL Total Bilirubin 0.5 (0.2-1.0) mg/dL AST 24 (10-42) IU/L ALT 30 (10-60) IU/L Alkaline Phosphatase 28 L (42-121) IU/L Total Protein 6.5 (6.4-8.9) g/dL Albumin 3.7 (3.2-5.5) g/dL Globulin 2.8 (2.1-4.2) g/dL Albumin/Globulin Ratio 1.3 (1.0-2.2) Lipase 20 (11-82) U/L Blood Type Blood Type Recheck Antibody Screen - Current Medications Current Medications: Current Medications Generic Name Dose Route Start Last Admin Trade Name Freq PRN Reason Stop Dose Admin Sodium Chloride 1,000 mls @ 83.333 mls/hr 07/07/23 18:00 07/07/23 22:47 Normal Saline 0.9% IV 83.333 mls/hr .Q12H DYAN Infusion Sodium Chloride 10 ml 07/07/23 17:00 07/07/23 23:47 Sodium Chloride Flush 0.9% 10 Ml Syringe IVP 10 ml 0100,0900,1700 DYAN Administration Sucralfate 1 gm 07/08/23 07:00 07/08/23 06:31 Sucralfate 1 Gm/10 Ml Udc PO 1 gm 0700,1100,1600,2200 DYAN Administration - Physical Exam General Appearance: positive: No acute distress, Alert Eyes Bilateral: positive: Normal inspection, PERRL ENT: positive: No signs of dehydration Neck: positive: Trachea midline Respiratory: positive: No respiratory distress Cardiovascular: positive: Regular rate & rhythm Abdomen: positive: Non-tender Extremities: positive: Non-tender Neurologic/Psychiatric: positive: Oriented x3 Impression/Plan - Problem List Problem List: 83 y/o M with: 1. Acute gi bleed 2/2 Patsy-Whelan tear - Hgb 8.1 this AM, will f/u 1200 lab. - HD stable - no further bleeding noted by patient, no hematemesis since presentation - EGD on 07/07 demonstrated tear without stigmata of bleeding no intervention done. Plan to rescope if rebleeding occurs. - recommend BID PO PPI, gerd diet and lifestyle on discharge - ok to adat this AM to regular - if hgb stable at noon, ok to discharge 2. HTN - recommend holding home meds while actively bleeding Patient admitted to medicine. Thank you for consulting me in the care of this patient! I will continue to follow closely.
[2023-07-08 08:22] VITALS: O2SAT 96
[2023-07-08] MEDS ORDERED: PANTOPRAZOLE 40 MG TABLET PO SCH (09:00)
[2023-07-08] MEDS: SODIUM CHLORIDE 0.9% 1,000 ML IV SCH (09:24)
--- NOTE | 2023-07-08 10:26 | Discharge Plan ---
Discharge Plan Problem Reviewed?: Yes Disposition: Home, Self Care Condition: Fair Prescriptions: Ferrous Gluconate [Fergon] 324 mg PO 0800,1800 #60 tablet Pantoprazole [Protonix] 40 mg PO BID #60 tab Diet: Soft (Low acid diet: no citrus fruits, no spicy foods, no Turmeric supplement, no acidy foods) Activity Restrictions: Activity as Tolerated Shower Restrictions: No Driving Restrictions: No Instruction Topics: GERD Dc Health Concerns: You were hospitalized because you had bloody vomiting caused by bleeding in your stomach. You underwent a scope that showed you have an ulcer and also a tear. The tear was caused by the retching and vomiting. You are being discharged home today with a new prescriptions to take: Protonix to heal the ulcer, and Iron to build your anemia back up to a normal hemoglobin. All new prescriptions were electronically sent to your pharmacy. You must stop taking the daily aspirin and the ibuprofen for the next 1 months minimum. You also need to now be on a low acid (GERD) diet for the next 1 month at least. You are also advised to not be drinking alcohol daily. Plan of Treatment: As above. You should see your Primary Care Provider in the next 1 to 2 weeks for hospital follow-up visit, and blood test to see if you are anemic. Care Goals: Improvement in symptoms and stabilization are the goals. Assessment: The patient understands and is agreeable with the plan. Additional Instructions or Follow Up instructions: If you have new or worsening symptoms, call your primary care provider for advice, or come to the ER. No Smoking: If you smoke, Please STOP! Call for help. Follow-up with: Gomez Mart MD [Provider Admit Priv/Credential] -
[2023-07-08] MEDS: SODIUM CHLORIDE FLUSH 0.9% 10 ML SYRINGE IVP SCH (11:29)
[2023-07-08 13:59] LABS: BILIRUBIN,URINE NEGATIVE (NEGATIVE); GLUCOSE, URINE (UA) 250 mg/dL (NEGATIVE); KETONES,URINE (UA) NEGATIVE (NEGATIVE); LEUKOCYTE ESTERASE, URINE NEGATIVE (NEGATIVE); NITRITE,URINE NEGATIVE (NEGATIVE); OCCULT BLOOD,URINE NEGATIVE (NEGATIVE); PROTEIN,URINE NEGATIVE (NEGATIVE); UROBILINOGEN,URINE 0.2 (NORMAL) E.U./dL (NORMAL)
[2023-07-08 14:09] LABS: CLARITY,URINE CLEAR (CLEAR)
--- NOTE | 2023-07-08 14:54 | DISCHARGE SUMMARY ---
Discharge Summary Admit Date: 07/07/23 Discharge Date: 07/08/23 Discharging Provider: Dr Esther Goetz Primary Care Provider: Dr Gomez Mart Condition at Discharge: Fair Discharge Disposition: 01 Home, Self Care - HPI History of Present Illness: This is an 83-year-old male with a history of HTN on Lisinopril/HCTZ and he takes daily ASA. Today he presented to the ER with complaints of dark tarry stools for the past 2 to 3 days, and today had vomiting bright red blood and coffee-grounds. While in the ER he also had a current-jelly black stool. He was worked up for an GI bleed and hemoglobin came back at 10.5. His HR is 102, but BP stable. General surgery was called for consultation and will be taking him directly from the ED to OR for an EGD. I spoke to the general surgeon Dr. Gerber regarding the plan. Dr. Gerber first said that if the EGD is negative that he will need a CTA abdomen/pelvis, however Dr Gerber later told me that the CTA would only need to be done emergently if there is no source of bleeding found by EGD, or if he rebleeds. The patient drinks 1 glass of wine daily for years. His INR, MCV and LFTs are normal. His CODE status is Full Code. - HOSPITAL COURSE Hospital Course: (1) Hematemesis/vomiting blood Patient had witnessed coffee-ground emesis as well as current-jelly bowel move ment in the ER. He had an elevated BUN, consistent with upper GI bleed. Patient was started on IV Protonix BID empirically. He was taken to the OR for an EGD emergently. The findings were a small superficial healed ulcer in the duodenal bulb. He also had a Patsy-Whelan tear at the GE junction with evidence of recent bleeding. There was no blood in the stomach. He was treated with PPI twice daily and Sucralfate liquid. He was discharged on Protonix 40 BID, new Iron replacement, and was told to entirely stop his daily aspirin and Motrin for a month, to eat a low acid (GERD) diet and to decrease his alcohol use. His Hgb was followed closely. (2) Anemia The patient had a hemoglobin of 10.5 at presentation. It dropped to 9.9 later that day, then was 9.5>> 8.1>> 8.2 at time of discharge. He did not receive any blood transfusions. He was started on oral Iron suppl. (3) Hx of essential hypertension The patient was on BP meds. They were on hold while here, given normal VS on no meds. (4) Alcohol use As per the Gen Surgeon's recommendations, the patient was advised to decrease his alcohol intake from a glass of wine daily to less often. - ALLERGIES Allergies/Adverse Reactions: Allergies Allergy/AdvReac Type Severity Reaction Status Date / Time Iodinated Contrast Media Allergy Rash Verified 07/07/23 16:17 Penicillins Allergy Rash Verified 07/07/23 12:04 - MEDICATIONS Home Medications: Ambulatory Orders Medication Instructions Recorded Confirmed Calcium Magnesium Zinc 1 tab PO Q48H 07/07/23 07/07/23 Cholecalciferol [Vitamin D3] 2 tab PO DAILY 07/07/23 07/07/23 Magnesium Oxide 1 cap PO DAILY 07/07/23 07/07/23 Red Yeast Rice 1 cap PO DAILY 07/07/23 07/07/23 Tocopheryl [Vitamin E] 1 cap PO DAILY 07/07/23 07/07/23 Ferrous Gluconate [Fergon] 324 mg PO 0800,1800 #60 tablet 07/08/23 Pantoprazole [Protonix] 40 mg PO BID #60 tab 07/08/23 - PHYSICAL EXAM AT DISCHARGE General Appearance: positive: No acute distress, Alert Eyes Bilateral: positive: Normal inspection, EOMI ENT: positive: ENT inspection nml, No signs of dehydration Neck: positive: Nml inspection, No JVD Respiratory: positive: No respiratory distress, Breath sounds nml Cardiovascular: positive: Regular rate & rhythm, No murmur Abdomen: positive: Non-tender, Nml bowel sounds, No distention Skin: positive: Warm, Dry, Pallor Extremities: positive: Non-tender, No pedal edema Neurologic/Psychiatric: positive: Oriented x3, Motor nml - LABS Result Diagrams: 07/08/23 07:59 07/07/23 12:14 - FOLLOW UP Follow Up: See PCP in 1-2 weeks for a hospital F/U visit. - TIME SPENT Time Spent in Discharge (Minutes): 25
[2023-07-08 15:37] VITALS: BP 122/63
== END 2023-07-08 16:05 | disposition home or self-care (01) ==
LOC: ED 11:31 → OBSVTOIN 16:39 → INTOOBSV 16:39 → MS2 16:39
PROVIDERS: ADMIT Internal Medicine; ATTEND Internal Medicine
PROC: 0DB68ZX Excision of Stomach, Via Natural or Artificial Opening Endoscopic, Diagnostic (ICD-10-PCS; principal; 2023-07-07 17:00)
DX: K22.6 Gastro-esophageal laceration-hemorrhage syndrome (principal); K26.9 Duodenal ulcer, unspecified as acute or chronic, without hemorrhage or perforation; K29.70 Gastritis, unspecified, without bleeding; B96.81 Helicobacter pylori [H. pylori] as the cause of diseases classified elsewhere; D64.9 Anemia, unspecified; K21.9 Gastro-esophageal reflux disease without esophagitis; I10 Essential (primary) hypertension; Z79.82 Long term (current) use of aspirin; Z79.899 Other long term (current) drug therapy; Z88.0 Allergy status to penicillin; Z91.041 Radiographic dye allergy status
CPT/HCPCS: 36415; 43239; 80053; 81003; 82272; 83690; 85018; 85025; 85610; 86850; 86900; 86901; 96374; 96375; 99284; 99285; A9270; J2765; 81001; 87086

== ENCOUNTER 2023-12-01 10:08 | Outpatient (CLI) | payer MEDICARE ==
--- NOTE | 2023-12-01 15:33 | Ultrasound Report ---
PROCEDURE: Soft Tissue Head or Neck INDICATIONS: THYROID NODULE TECHNIQUE: Real-time scanning was performed of the thyroid gland, with image documentation. COMPARISON: Thyroid ultrasound 11/01/2022. CTA neck 10/16/2022 FINDINGS: Right: Thyroid lobe measures 4.4 x 1.9 x 1.8 cm, and is homogeneous in echotexture. Left: Thyroid lobe measures 4.2 x 2.0 x 1.6 cm, and is homogenous in echotexture. Isthmus: 0.4 cm thick. Nodule number: One Location: Right superior lateral Size: 0.9 x 0.7 x 0.4 cm, unchanged. Composition: Solid (2 points). Echogenicity: Isoechoic (1 point). Shape: wider than tall (0 points). Margins: Smooth (0 points). Echogenic foci: None (0 points). Total points: 3 ACR TI-RADS category: TI-RADS 3: Mildly suspicious. Nodule number: Two Location: Right inferior Size: 1.6 x 1.5 x 1.3 cm, significantly changed. Composition: Solid (2 points). Echogenicity: Isoechoic (1 point). Shape: wider than tall (0 points). Margins: Smooth (0 points). Echogenic foci: None (0 points). Total points: 3 ACR TI-RADS category: TI-RADS 3: Mildly suspicious. Circumscribed hypoechoic lesion is seen in the left posterior neck measuring 2.0 x 1.8 x 1.6 cm with posterior acoustic enhancement, which does not appear significantly changed when compared to the prio r ultrasound from 11/01/2022. The CT from 10/16/2022. IMPRESSION: 1.Stable right-sided thyroid nodules. Recommend continued sonographic follow-up. 2.Stable complicated cyst in the left posterior neck. ACR TI-RADS definitions and recommendations: TI-RADS 1 (benign): 0 points. FNA not needed. TI-RADS 2 (not suspicious): 2 points. FNA not needed. TI-RADS 3 (mildly suspicious): 3 points. "FNA if 2.5 cm or larger, follow up if 1.5 cm or larger (at 1, 3, and 5 years). TI-RADS 4 (moderately suspicious): 4-6 points. "FNA if 1.5 cm or larger, follow up if 1 cm or larger (at 1, 2, 3, and 5 years). TI-RADS 5 (highly suspicious): 7 points or more. "FNA if 1 cm or larger, follow up if 0.5 cm or larger (every year for 5 years). Reviewed by: Jeff Power MD on 12/01/2023 3:32 PM PST Approved by: Jeff Power MD on 12/01/2023 3:32 PM PST Station ID: [id number]
== END 2023-12-01 10:09 | disposition home or self-care (01) ==
LOC: DI 10:08
PROVIDERS: ATTEND Otolaryngology
DX: E04.2 Nontoxic multinodular goiter (principal)

== ENCOUNTER 2025-02-21 09:49 | Observation (INO) ==
[2025-02-21] MEDS ORDERED: ceFAZolin 2 GM VIAL ONE (10:13)
--- NOTE | 2025-02-21 10:47 | Preop H&P Attestation ---
Preop H&P Attestation Preop History & Physical Preop H&P Date: 02/08/25 History & Physical Reviewed and patient examined today.: No change -: RRR CTA b/l hess in place
[2025-02-21] MEDS ORDERED: NALOXONE 0.4 MG/ML VIAL IVP PRN (10:49)
[2025-02-21] MEDS ORDERED: ONDANSETRON 4 MG/2 ML VIAL IVP PRN ×2 (10:49→12:34)
[2025-02-21] MEDS ORDERED: fentaNYL 100 MCG/2 ML VIAL IVP PRN (10:49)
[2025-02-21] MEDS ORDERED: HYDROmorphone 0.5 MG/0.5 ML SYRINGE IVP PRN (10:49)
[2025-02-21] MEDS ORDERED: METOCLOPRAMIDE 10 MG/2 ML VIAL IVP PRN (10:49)
[2025-02-21] MEDS ORDERED: ePHEDrine 50 MG/ML VIAL IVP PRN (10:49)
[2025-02-21] MEDS ORDERED: ATROPINE ABBOJECT 1 MG/10 ML SYRINGE IVP PRN (10:49)
[2025-02-21] MEDS ORDERED: MORPHINE 2 MG/ML CARPUJECT IVP PRN ×2 (10:49→14:14)
--- NOTE | 2025-02-21 10:49 | ANESTHESIA PROCEDURE NOTE ---
Pre-Anesthesia VS, & Labs Diagnosis Surgical Diagnosis:: enlarged prostate Procedure Procedure: TURP Vitals Vital Signs: Temp Pulse Resp BP Pulse Ox 36.5 C 75 14 178/91 H 96 02/21/25 10:15 02/21/25 10:15 02/21/25 10:15 02/21/25 10:15 02/21/25 10:15 NPO NPO: >8 hours Meds/Allgy Home Medications Ambulatory Orders Medication Instructions Recorded Confirmed Calcium Magnesium Zinc 1 tab PO Q48H 07/07/23 02/21/25 Red Yeast Rice 1 cap PO DAILY 07/07/23 02/21/25 cholecalciferol (vitamin D3) 25 2 tab PO DAILY 07/07/23 02/21/25 mcg (1,000 unit) tablet magnesium oxide 500 mg capsule 1 cap PO DAILY 07/07/23 02/21/25 vitamin E (dl, acetate) 180 mg 1 cap PO DAILY 07/07/23 02/21/25 (400 unit) capsule hydrochlorothiazide 12.5 mg tablet 12.5 mg PO QDAY 12/03/24 02/21/25 lisinopril 20 mg tablet 20 mg PO QDAY 12/03/24 02/21/25 coenzyme Q10 100 mg capsule (Co 100 mg PO DAILY 02/15/25 02/21/25 Q-10) tamsulosin 0.4 mg capsule (Flomax) 0.4 mg PO DAILY #30 caps 02/15/25 02/21/25 Allergies Allergies Allergy/AdvReac Type Severity Reaction Status Date / Time Iodinated Contrast Media Allergy Rash Verified 02/21/25 10:14 Penicillins Allergy Rash Verified 02/21/25 10:14 PFSH Active Problems All Active Problems (Updated 02/08/25 @ 15:26 by Que Collier MD) Bladder mass (Acute) BPH with obstruction/lower urinary tract symptoms (Acute) Acute urinary retention (Acute) Acute urinary retention (Acute) Bowel habit changes (Acute) BRBPR (bright red blood per rectum) (Acute) Other fecal abnormalities (Acute) Fatty liver (Acute) Elevated prostate specific antigen greater than or equal to 20 ng/ml (Acute) Dysphasia (Acute) Diverticulitis (Acute) Medical History Medical History (Updated 02/08/25 @ 15:26 by Que Collier MD) History of colon polyps Benign paroxysmal positional vertigo Essential hypertension Hyperlipidemia Social History Social History (Updated 02/15/25 @ 11:08 by Terra Mitchell RN) Smoking Status: Former smoker If you are a former smoker, when did you quit? (Date/Year): 50 years ago Do you dip or chew tobacco?: No Living arrangement: At home Living Condition: With spouse/s.o. Relationship: Level: Independent Do you feel safe in your home environment?: Yes Suffered physical, verbal, emotional, or financial abuse?: No History of Abuse: No ETOH Use: Wine Frequency: Daily ETOH Use Details: 1/2 glass Substance Use: denies use POLST Patient has POLST: No Anesthesia Exam (Expanded) Exam General: Alert, Oriented x3 and Cooperative Dental: WNL Mouth Opening: Greater than 4 Fingerbreadths Mallampati classification: II Thyromental Distance: greater than 6 cm Respiratory: Lungs clear Cardiovascular: Regular rate Plan Plan Anesthesia Type: General Consent for Procedure(s) Verified and Reviewed: Yes Code Status: Attempt Resuscitation ASA Classification ASA classification: 2-Mild systemic disease Is this case an emergency?: No
[2025-02-21] MEDS ORDERED: PROPOFOL 200 MG/20 ML VIAL IVP ONE (11:20)
[2025-02-21] MEDS ORDERED: LIDOCAINE 2% URO-JET 5 ML SYRINGE UR ONE (11:20)
[2025-02-21] MEDS ORDERED: LIDOCAINE-PF 2% 10 ML AMP SUBQ ONE (11:21)
[2025-02-21] MEDS ORDERED: fentaNYL 100 MCG/2 ML VIAL ONE ×2 (11:21→12:12)
[2025-02-21] MEDS: ceFAZolin (2G) 2 GM in SODIUM CHLORIDE 0.9% MINIBAG 100 ML IV ONE (11:35)
[2025-02-21] MEDS ORDERED: DEXAMETHASONE 4 MG/ML VIAL ONE (11:48)
[2025-02-21] MEDS ORDERED: ONDANSETRON 4 MG/2 ML VIAL ONE (11:48)
[2025-02-21] MEDS: LACTATED RINGERS 1,000 ML IV SCH (12:00)
[2025-02-21] MEDS ORDERED: HYDROcod/ACETAM 5/325 MG TABLET PO PRN (12:34)
--- NOTE | 2025-02-21 12:39 | OPERATIVE REPORT ---
Operative Report General Procedure Data: Operation Date: 02/21/25 12:15 Proposed Procedures p Transurethral Resection Prostate, Bladder biopsy(Not Applicable) - Que Collier MD Actual Procedures p Transurethral Resection Prostate, Bladder biopsy(Not Applicable) - Que Collier MD Pre-Op Diagnosis: BPH w/retention, bladder mass Anesthesia Type General Case Staff Anesthesia Provider: Asha Witt Anesthesia Provider: Keith Ramirez Case Times Procedure Start: 02/21/25 11:44 Procedure End: 02/21/25 12:29 Time out: 02/21/25 11:43 Pre-Op Diagnosis: BPH and bladder mass Post Op Diagnosis: BPH and bladder mass Procedure Note Estimated Blood Loss (ml): 100 Findings: papillary/edematous posterior bladder wall very bloody TURP Complications: none Other Other Information/Narrative: After informed consent was obtained the patient brought to the OR and laid in the supine position. His old catheter was removed and he was anesthetized per anesthesia protocols. He was prepped and draped in usual sterile fashion in the dorsolithotomy position. A formal timeout was performed reconfirmed the patient procedure and laterality. A 26 Lithuanian resectoscope was advanced per urethra into urinary bladder. He had a very enlarged prostate with lateral lobe hypertrophy. It was quite obstructing. He had posterior bladder wall erythema and edematous papillary changes consistent with possible catheter cystitis versus malignancy. Using loop electrocautery and the bipolar setting we took a small half centimeter portion of this tissue in the bladder wall to send for analysis. We sent this as bladder biopsy. Fulguration was used for hemostasis. We then turned our attention to the TURP procedure. Using loop electrocautery and the bipolar setting we resected the left and right lateral lobes. It was significantly vascular and there was a lot of bleeding. This required a lot of spots hemostasis. We used a bipolar rollerball as well for hemostasis. Eventually there was good hemostasis and there was a wide open channel. We did not resect distal to the verumontanum. His ureteral orifices were seen and were not injured. His prostate chips were sent for analysis. A 22 Lithuanian three-way Zayas catheter with 50 cc in the balloon was placed on traction after Uro-Jet was placed He was kept on continuous bladder irrigation and brought to the PACU without further incident. He will likely go home today versus be kept overnight for monitoring. We will see him next week for voiding trial
[2025-02-21] MEDS ORDERED: LABETALOL 5 MG IVP ONE ×2 (13:15→13:35)
[2025-02-21] MEDS ORDERED: LABETALOL 20 MG/4 ML SYRINGE IVP ONE ×2 (13:20→14:00)
[2025-02-21] MEDS: LABETALOL 5 MG/1 ML 20 ML MDV IVP ONE (13:22)
[2025-02-21] MEDS: LABETALOL 20 MG/4 ML SYRINGE IVP ONE (13:54)
[2025-02-21] MEDS ORDERED: LABETALOL 5 MG/1 ML 20 ML MDV IVP ONE (14:00)
[2025-02-21] MEDS ORDERED: LABETALOL 5 MG/1 ML 20 ML MDV IVP PRN (14:00)
--- NOTE | 2025-02-21 14:03 | ANESTHESIA POST OP EVALUATION ---
Anesthesia Post Eval Post Anesthesia Eval Vitals: Last Vital Signs Temp 36.8 C 02/21/25 12:37 Pulse 68 02/21/25 13:51 Resp 16 02/21/25 13:51 BP 160/88 H 02/21/25 13:51 Pulse Ox 67 L 02/21/25 13:51 CV Function Including HR & BP: Additional Therapies Ordered (two doses of Labetalol ordered for HTH; bp coming down as pt was being transferred to floor) Pain Control: Satisfactory Nausea & Vomiting: Negative Mental Status: Baseline Respiratory Status: Airway Patent Hydration Status: Satisfactory Anesthesia Complications: None
[2025-02-21] MEDS ORDERED: ONDANSETRON ODT 4 MG TABLET TL PRN (14:14)
[2025-02-21] MEDS ORDERED: ZOLPIDEM 5 MG TABLET PO PRN (14:14)
[2025-02-21] MEDS ORDERED: SODIUM CHLORIDE FLUSH 0.9% 10 ML SYRINGE IVP PRN (14:14)
[2025-02-21] MEDS ORDERED: oxyCODONE 5 MG TABLET PO PRN (14:14)
[2025-02-21] MEDS ORDERED: ACETAMINOPHEN 325 MG TABLET PO PRN (14:14)
[2025-02-21] MEDS: lisinopriL 20 MG TABLET PO SCH (14:38)
--- NOTE | 2025-02-21 14:48 | PHARMACY PROGRESS NOTE ---
Best Possible Medication History Admit Date and Time: 02/21/25 [id number] Home Medications Medication Instructions Recorded Confirmed Type Calcium Magnesium Zinc 1 tab PO Q48H 07/07/23 02/21/25 History Red Yeast Rice 1 cap PO DAILY 07/07/23 02/21/25 History cholecalciferol (vitamin D3) 25 2 tab PO DAILY 07/07/23 02/21/25 History mcg (1,000 unit) tablet magnesium oxide 500 mg capsule 1 cap PO DAILY 07/07/23 02/21/25 History vitamin E (dl, acetate) 180 mg 1 cap PO DAILY 07/07/23 02/21/25 History (400 unit) capsule hydrochlorothiazide 12.5 mg tablet 12.5 mg PO QDAY 12/03/24 02/21/25 History lisinopril 20 mg tablet 20 mg PO QDAY 12/03/24 02/21/25 History coenzyme Q10 100 mg capsule (Co 100 mg PO DAILY 02/15/25 02/21/25 History Q-10) tamsulosin 0.4 mg capsule (Flomax) 0.4 mg PO DAILY #30 caps 02/15/25 02/21/25 Rx hydrocodone 5 mg-acetaminophen 325 1 tab PO Q4H PRN Pain #10 tabs 02/21/25 Rx mg tablet Processed by: Pharmacy (Medication reconciliation completed by Piece CutterGladys) Medications reviewed in ED?: No Medication History completed: Yes Patient Interview: Completed Secondary Source(s): Insurance records [facility] Statement: As the person ultimately responsible for medication therapy, providers are able to order a medication from an existing home medication list in [facility] via the "Reconcile Routine" prior to Confirmation of that medication by respiratory support technician. Such practice is discouraged except when the physician, in their clinical judgment, deems that a medical need exists for a medication without regard to previous use.
[2025-02-21] MEDS: cephALEXin 500 MG CAPSULE PO SCH (17:52)
[2025-02-21] MEDS: SODIUM CHLORIDE FLUSH 0.9% 10 ML SYRINGE IVP SCH (17:53)
[2025-02-22 05:22] LABS: HCT - HEMATOCRIT 36.4 % (42.0-52.0); MEAN CORPUSCULAR HEMOGLOBIN 29.6 pg (27.0-31.0); MEAN CORPUSCULAR VOLUME 89.7 fL (80.0-94.0); MEAN PLATELET VOLUME 9.3 fL (7.4-11.4); RED BLOOD COUNT 4.06 10^6/uL (4.70-6.10); RED CELL DISTRIBUTION WIDTH 12.3 % (12.0-15.0); WHITE BLOOD COUNT 9.4 x10^3/uL (4.8-10.8)
[2025-02-22 05:37] LABS: CALCIUM 8.8 mg/dL (8.5-10.3); CREATININE 0.9 mg/dL (0.6-1.3)
[2025-02-22 05:46] LABS: INR 1.2 (0.8-1.2)
[2025-02-22 07:51] VITALS: BP 143/72; TEMP 98.1; O2SAT 96
[2025-02-22] MEDS: MAGNESIUM OXIDE 400 MG TABLET PO SCH (08:04)
--- NOTE | 2025-02-22 08:23 | PROVIDER PROGRESS NOTE ---
Subjective Prog Note Date Prog Note Date: 02/22/25 Prog Note Time: 08:21 Subjective Pt reports feeling: Improved Subjective: much improved bleeding. feels well Current Medications Current Medications Current Medications: Current Medications Generic Name Dose Route Start Last Admin Trade Name Freq PRN Reason Stop Dose Admin Acetaminophen 650 mg 02/21/25 14:14 Acetaminophen 325 Mg Tablet PO Q4HR PRN Pain 1 to 4, or Fever Cephalexin 500 mg 02/21/25 18:00 02/22/25 06:14 Cephalexin 500 Mg Capsule PO 500 mg Q6HR DYAN Administration Lisinopril 20 mg 02/21/25 14:14 02/22/25 08:05 Lisinopril 20 Mg Tablet PO 20 mg DAILY DYAN Administration Magnesium Oxide 400 mg 02/22/25 08:00 02/22/25 08:04 Magnesium Oxide 400 Mg Tablet PO 400 mg DAILYWM DYAN Administration Morphine Sulfate 2 mg 02/21/25 14:14 Morphine 2 Mg/Ml Carpuject IVP Q2HR PRN Pain 8 to 10 Ondansetron HCl 4 mg 02/21/25 14:14 Ondansetron Odt 4 Mg Tablet TL Q6HR PRN Nausea / Vomiting Oxycodone HCl 5 mg 02/21/25 14:14 Oxycodone 5 Mg Tablet PO Q4HR PRN Pain 5 to 7 Sodium Chloride 10 ml 02/21/25 14:14 Sodium Chloride Flush 0.9% 10 Ml Syringe IVP PRN PRN NEEDED PER PROVIDER ORDERS Sodium Chloride 10 ml 02/21/25 17:00 02/22/25 00:15 Sodium Chloride Flush 0.9% 10 Ml Syringe IVP 10 ml 0100,0900,1700 DYAN Administration Zolpidem Tartrate 5 mg 02/21/25 14:14 Zolpidem 5 Mg Tablet PO QPM PRN Insomnia Objective Vital Signs/Intake & Output Reviewed Vital Signs: Yes Vital Signs: Vital Signs x48h Temp Pulse Resp BP Pulse Ox 02/22/25 07:49 36.7 C 76 20 143/72 H 96 02/22/25 05:00 37.0 C 62 20 138/69 H 94 Intake & Output: Intake & Output 02/19/25 02/20/25 02/21/25 02/22/25 23:59 23:59 23:59 23:59 Intake Total 33589 / 03419 3440 / 3440 Output Total 34272 / 04662 6500 / 6500 Balance -8175 / -8175 -3060 / -3060 Weight (kg) 75 kg Objective General Appearance: positive No acute distress (cbi clear on slow drip) Lab Results 02/22/25 04:41 02/22/25 04:41 Other Labs: Lab Results x24hrs 02/22/25 Range/Units 04:41 WBC 9.4 (4.8-10.8) x10^3/uL RBC 4.06 L (4.70-6.10) 10^6/uL Hgb 12.0 L (14.0-18.0) g/dL Hct 36.4 L (42.0-52.0) % MCV 89.7 (80.0-94.0) fL MCH 29.6 (27.0-31.0) pg MCHC 33.0 (32.0-36.0) g/dL RDW 12.3 (12.0-15.0) % Plt Count 184 (130-450) 10^3/uL MPV 9.3 (7.4-11.4) fL PT 13.0 H (9.9-12.6) secs INR 1.2 (0.8-1.2) Sodium 135 (135-145) mmol/L Potassium 4.0 (3.5-4.5) mmol/L Chloride 101 (101-111) mmol/L Carbon Dioxide 26 (21-32) mmol/L Anion Gap 8.0 (6-13) BUN 13 (6-20) mg/dL Creatinine 0.9 (0.6-1.3) mg/dL Estimated GFR (MDRD) 81 L (>89) Glucose 114 H (74-104) mg/dL Calcium 8.8 (8.5-10.3) mg/dL Assessment/Plan Problem List (1) Hematuria: Impression: 84-year-old male status post TURP and bladder biopsy February 21, 2025, admitted overnight for his bladder irrigation. Doing very well Labs stable Hemodynamically stable Discharge home today with catheter in place Followup for void trial Qualifiers: Hematuria type: gross Qualified Code(s): R31.0 - Gross hematuria
--- NOTE | 2025-02-22 08:28 | Discharge Summary ---
"Discharge Summary Admit Date: 02/21/25 Discharge Date: 02/22/25 Discharging Provider: Nando Code Status: Attempt Resuscitation DIAGNOSES Admission Diagnoses: hematuria Discharge Diagnoses with Status of Each Condition: hematuria-resolved HPI History of Present Illness: 84-year-old male with urinary retention failing voiding trial, now status post TURP and bladder biopsy February 21, 2025 CONSULTS | PROCEDURES Procedures: TURP and bladder biopsy 02/21/2025 HOSPITAL COURSE Hospital Course: After his procedure he was noted to have gross hematuria persistently and so was started on continuous bladder irrigation. Overnight he did very well. He has hematuria resolved with CBI alone ALLERGIES Allergies Allergy/AdvReac Type Severity Reaction Status Date / Time Iodinated Contrast Media Allergy Rash Verified 02/21/25 10:14 Penicillins Allergy Rash Verified 02/21/25 10:14 MEDICATIONS Ambulatory Orders Medication Instructions Recorded Confirmed Calcium Magnesium Zinc 1 tab PO Q48H 07/07/23 02/21/25 Red Yeast Rice 1 cap PO DAILY 07/07/23 02/21/25 cholecalciferol (vitamin D3) 25 2 tab PO DAILY 07/07/23 02/21/25 mcg (1,000 unit) tablet magnesium oxide 500 mg capsule 1 cap PO DAILY 07/07/23 02/21/25 vitamin E (dl, acetate) 180 mg 1 cap PO DAILY 07/07/23 02/21/25 (400 unit) capsule hydrochlorothiazide 12.5 mg tablet 12.5 mg PO QDAY 12/03/24 02/21/25 lisinopril 20 mg tablet 20 mg PO QDAY 12/03/24 02/21/25 coenzyme Q10 100 mg capsule (Co 100 mg PO DAILY 02/15/25 02/21/25 Q-10) tamsulosin 0.4 mg capsule (Flomax) 0.4 mg PO DAILY #30 caps 02/15/25 02/21/25 hydrocodone 5 mg-acetaminophen 325 1 tab PO Q4H PRN Pain #10 tabs 02/21/25 mg tablet PHYSICAL EXAM AT DISCHARGE Vital Signs: Vital Signs x48h Temp Pulse Resp BP Pulse Ox 02/22/25 07:49 36.7 C 76 20 143/72 H 96 02/22/25 05:00 37.0 C 62 20 138/69 H 94 General Appearance: positive No acute distress LABS 02/22/25 04:41 02/22/25 04:41 TIME SPENT Time Spent in Discharge (Minutes): 10 Discharge Plan Discharge Patient Disposition: Home, Self Care Condition: Good Prescriptions: New hydrocodone-acetaminophen 5-325 mg tablet 1 tab PO Q4H PRN (Reason: Pain) Qty: 10 0RF Continued tamsulosin [Flomax] 0.4 mg capsule 0.4 mg PO DAILY Qty: 30 2RF cholecalciferol (vitamin D3) 25 MCG tablet 2 tab PO DAILY vitamin E (dl, acetate) 400 UNIT capsule 1 cap PO DAILY Red Yeast Rice capsule 1 cap PO DAILY magnesium oxide 500 MG capsule 1 cap PO DAILY Calcium Magnesium Zinc tablet 1 tab PO Q48H coenzyme Q10 [Co Q-10] 100 mg capsule 100 mg PO DAILY lisinopril 20 mg tablet 20 mg PO QDAY hydrochlorothiazide 12.5 mg tablet 12.5 mg PO QDAY Activity Restrictions/Additional Instructions: DIET - You may resume your normal diet if there is no nausea or vomiting. You may want to avoid spicy, greasy, or heavy foods today to minimize gas. - If nausea or vomiting occurs, don't eat or drink anything for one hour. Then start drinking small amounts of clear liquids. Later, add crackers, gradually building up to your usual diet. ACTIVITY INSTRUCTIONS * no heavy lifting for two weeks DISCHARGE INSTRUCTIONS * Routine catheter care. * It is normal to see blood in or around the catheter. As long as urine is mostly draining into the bag then all is well. It is normal for some spasms to cause urine to drain around the catheter occasionally * Call for fever greater than 100.4 Fahrenheit. Call if the catheter stops draining MEDICATIONS * Take Tylenol as needed for pain. Take narcotic pain medications for rescue pain. Take stool softeners on days you take pain medications ANESTHESIA PRECAUTIONS Anesthesia and medications given during surgery remain in your body up to 24 hours. This may slow reaction time and/or decrease coordination. FOR THE NEXT 24 HOURS: - Have a responsible person with you - Avoid any activity that requires you to be alert and coordinated - DO NOT DRIVE a motor vehicle for 24 hours or as long as you are taking opoid pain medication - Do not drink alcoholic beverages - Do not smoke unattended Patient Date Escort Date RN Date Diet: Regular Print Language: Turkish Patient Instructions: Surgery Anesthesia After, TURP Home Recover Follow-up Care: Que Collier MD [Provider Admit Priv/Credential] - (03/03/25 at 9am for catheter removal) Gomez Mart MD [Primary Care Provider] -"
== END 2025-02-22 10:21 | disposition home or self-care (01) ==
LOC: SDS 09:49 → MS2 09:49
PROVIDERS: ADMIT Urology; ATTEND Urology